=== PATIENT | male | born 2000 | race Caucasian/White ===

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

== ENCOUNTER 2021-12-27 15:43 | Emergency (ER) | payer BC, OTHER ==
--- NOTE | 2021-12-27 17:08 | CT ---
EXAMINATION TYPE: CT brain cspine wo con DATE OF EXAM: 12/27/2021 COMPARISON: Head CT scan 12/04/2020 HISTORY: shoulder pain CT DLP: 1298.5 mGycm Automated exposure control for dose reduction was used. Ventricles have normal size. There is no mass effect or midline shift. No sign of intracranial hemorr baltazar. The calvarium is intact. The cervical vertebra have normal spacing and alignment. Posterior elements are intact. Facet joints appear normal. Prevertebral soft tissues appear normal. Mastoid sinuses appear normal. Skull base is intact. IMPRESSION: Normal unenhanced head CT scan. Normal CT scan of the cervical spine.
--- NOTE | 2021-12-27 17:27 | ED ---
General Adult HPI - General Chief complaint: Recheck/Abnormal Lab/Rx Stated complaint: L shoulder/ribs injury/coughing up blood Time Seen by Provider: 12/27/21 16:34 Source: patient, RN notes reviewed, old records reviewed Mode of arrival: ambulatory Limitations: no limitations - History of Present Illness Initial comments: 21-year-old male presenting with left-sided chest injury, head injury, right knee injury. Patient states he was drinking and possibly doing drugs yesterday he is uncertain exactly what happened. He did report bilateral knee pain, occipital headache, and injury to the left chest wall. - Related Data Home Medications Medication Instructions Recorded Confirmed No Known Home Medications 09/15/15 12/04/20 Allergies Allergy/AdvReac Type Severity Reaction Status Date / Time No Known Allergies Allergy Verified 12/27/21 16:29 Review of Systems ROS Statement: Those systems with pertinent positive or pertinent negative responses have been documented in the HPI. ROS Other: All systems not noted in ROS Statement are negative. Past Medical History Past Medical History: Seizure Disorder History of Any Multi-Drug Resistant Organisms: None Reported Past Surgical History: No Surgical Hx Reported, Orthopedic Surgery Past Psychological History: Anxiety, Depression Smoking Status: Vaper Past Alcohol Use History: Occasional Past Drug Use History: None Reported - Past Family History Mother Family Medical History: No Reported History General Exam Limitations: no limitations General appearance: alert, in no apparent distress Head exam: Present: atraumatic, normocephalic Eye exam: Present: normal appearance, PERRL ENT exam: Present: normal exam Neck exam: Present: normal inspection. Absent: tenderness, meningismus Respiratory exam: Present: normal lung sounds bilaterally. Absent: respiratory distress, wheezes Cardiovascular Exam: Present: regular rate, normal rhythm GI/Abdominal exam: Present: soft. Absent: distended, tenderness Extremities exam: Present: tenderness (Bilateral abrasions to the anterior knees), normal capillary refill. Absent: pedal edema, calf tenderness Neurological exam: Present: alert, oriented X3, CN II-XII intact Skin exam: Present: warm, dry Course Vital Signs 12/27/21 12/27/21 16:26 18:22 Temperature 98.6 F 98.3 F Pulse Rate 100 107 H Respiratory 20 20 Rate Blood Pressure 147/106 157/91 O2 Sat by Pulse 99 100 Oximetry Medical Decision Making - Medical Decision Making 21-year-old male with alcohol use as well as various illicit drugs possibly cocaine, possible Adderall, possible methamphetamine. Injury occurred yesterday. CT brain is ordered which is negative for intracranial hemorrhage or mass effect, chest x-ray as well as bilateral knee x-rays are negative for traumatic injury. His breath alcohol is negative. Urine drug screen Disposition Clinical Impression: Concussion, Contusion of rib on left side Disposition: HOME SELF-CARE Condition: Fair Instructions (If sedation given, give patient instructions): Rib Contusion (ED), Concussion (ED) Is patient prescribed a controlled substance at d/c from ED?: No Referrals: None,Stated [Primary Care Provider] - 1-2 days Jean Londono MD [REFERRING] - 1-2 days Time of Disposition: 18:49
--- NOTE | 2021-12-27 17:44 | XR ---
EXAMINATION TYPE: XR knee complete bilateral DATE OF EXAM: 12/27/2021 COMPARISON: NONE HISTORY: Pain TECHNIQUE: 3 views each knee FINDINGS: There is no fracture nor dislocation. Joint spaces are normal. No sign of knee joint effusi on. IMPRESSION: Normal bilateral knee exam.
--- NOTE | 2021-12-27 17:46 | XR ---
EXAMINATION TYPE: XR chest 2V DATE OF EXAM: 12/27/2021 COMPARISON: 09/15/2015 HISTORY: Chest pain TECHNIQUE: FINDINGS: Heart is normal. Lungs are clear. Diaphragm is normal. Bony thorax appears normal. IMPRESSION: Normal chest. There is clearing of some infiltrate in the right upper lobe compared to ol d exam.
[2021-12-27 18:24] VITALS: TEMP 98.3
[2021-12-27 19:15] LABS: Amphetamine Screen,Urine Detected (NotDetected); Barbiturate Screen,Urine Not Detected (NotDetected); Benzodiazepines Screen,Urine Not Detected (NotDetected); Cocaine Screen,Urine Not Detected (NotDetected); Methadone Screen, Urine Not Detected (NotDetected); Opiate Screen,Urine Not Detected (NotDetected); Oxycodone Screen, Urine Not Detected (NotDetected); Phencyclidine Screen,Urine Not Detected (NotDetected); Tricyclic Antidepressant,Urine Not Detected (NotDetected); Urn Cannabinoid Scrn Detected (NotDetected)
[2021-12-27 19:34] VITALS: BP 128/76; PULSE 82; RESP 16
== END 2021-12-27 19:35 | disposition home or self-care (01) ==
LOC: EC 15:43
DX: S20.211A Contusion of right front wall of thorax, initial encounter (principal); S06.0X9A Concussion with loss of consciousness of unspecified duration, initial encounter; F17.209 Nicotine dependence, unspecified, with unspecified nicotine-induced disorders; X58.XXXA Exposure to other specified factors, initial encounter
CPT/HCPCS: 70450; 71046; 72125; 80306; 82075; 99284

== ENCOUNTER 2022-06-21 18:10 | Emergency (ER) | payer SELFPAY ==
[2022-06-21 18:26] VITALS: TEMP 98
--- NOTE | 2022-06-21 20:38 | ED ---
General Adult HPI - General Chief complaint: Upper Respiratory Infection Stated complaint: fever, body aches Time Seen by Provider: 06/21/22 19:21 Source: patient Mode of arrival: ambulatory Limitations: no limitations - History of Present Illness Initial comments: This is a 21-year-old male who presents emergency department for a COVID-19 test. The patient stated that he had upper respiratory infection including nasal congestion and a cough over the last several days that started on . The patient was at work and he was advised to get a COVID-19 test however he presented to an urgent care and they told him that he needed an upfront amount of money and he did not want to pay this so evaluated throughout the weekend to come to the emergency department today for a test. The patient denied any fevers or chills and stated that he just needed testicle back to work. The patient denied any other acute pain or complaints at this time. - Related Data Home Medications Medication Instructions Recorded Confirmed No Known Home Medications 09/15/15 12/04/20 Allergies Allergy/AdvReac Type Severity Reaction Status Date / Time No Known Allergies Allergy Verified 06/21/22 18:26 Review of Systems ROS Statement: Those systems with pertinent positive or pertinent negative responses have been documented in the HPI. ROS Other: All systems not noted in ROS Statement are negative. Past Medical History Past Medical History: Seizure Disorder History of Any Multi-Drug Resistant Organisms: None Reported Past Surgical History: Orthopedic Surgery Additional Past Surgical History / Comment(s): right arm Past Psychological History: Anxiety, Depression Smoking Status: Vaper Past Alcohol Use History: Rare Past Drug Use History: Marijuana - Past Family History Mother Family Medical History: No Reported History General Exam Limitations: no limitations General appearance: alert, in no apparent distress Head exam: Present: atraumatic, normocephalic Eye exam: Present: normal appearance, PERRL Pupils: Present: normal accommodation ENT exam: Present: normal exam, normal oropharynx, mucous membranes moist Neck exam: Present: normal inspection, full ROM Respiratory exam: Present: normal lung sounds bilaterally Cardiovascular Exam: Present: regular rate, normal rhythm, normal heart sounds GI/Abdominal exam: Present: soft, normal bowel sounds Extremities exam: Present: normal inspection, full ROM, normal capillary refill Back exam: Present: normal inspection, full ROM Neurological exam: Present: alert, oriented X3, CN II-XII intact Psychiatric exam: Present: normal affect, normal mood Skin exam: Present: warm, dry Course Vital Signs 06/21/22 06/21/22 18:21 20:48 Temperature 98.0 F Pulse Rate 84 72 Respiratory 20 18 Rate Blood Pressure 139/88 143/92 O2 Sat by Pulse 97 98 Oximetry Medical Decision Making - Medical Decision Making The patient was seen and evaluated emergency department. Physical exam, the patient was resting in bed without any acute distress. Vital signs admission were stable and within normal limits. Swab for COVID-19, influenza and RSV were obtained and were all negative. The patient was deemed stable for discharge. The patient was advised that he can return to work tomorrow. The patient was agreeable to this and all discretions were answered. The patient was discharged home in stable condition. - Lab Data Lab Results 06/21/22 Range/Units 19:39 Influenza Type A (PCR) Not Detected (Not Detectd) Influenza Type B (PCR) Not Detected (Not Detectd) RSV (PCR) Not Detected (Not Detectd) SARS-CoV-2 (PCR) Not Detected (Not Detectd) Disposition Clinical Impression: URI (upper respiratory infection) Disposition: HOME SELF-CARE Condition: Stable Instructions (If sedation given, give patient instructions): Upper Respiratory Infection (ED) Is patient prescribed a controlled substance at d/c from ED?: No Referrals: Jean Londono MD [Primary Care Provider] - 1-2 days Time of Disposition: 20:30
[2022-06-21 20:49] VITALS: BP 143/92; PULSE 72; RESP 18
== END 2022-06-21 20:49 | disposition home or self-care (01) ==
LOC: EC 18:10
DX: J06.9 Acute upper respiratory infection, unspecified (principal); F41.9 Anxiety disorder, unspecified; F32.A Depression, unspecified; F17.290 Nicotine dependence, other tobacco product, uncomplicated; F12.90 Cannabis use, unspecified, uncomplicated; Z20.822 Contact with and (suspected) exposure to COVID-19
CPT/HCPCS: 87636; 99283

== ENCOUNTER 2022-11-02 17:26 | Emergency (ER) | payer BC, OTHER ==
[2022-11-02 17:57] VITALS: BP 161/109; TEMP 98.8
--- NOTE | 2022-11-02 19:41 | ED ---
URI HPI - General Chief Complaint: Upper Respiratory Infection Stated Complaint: Abd pain Time Seen by Provider: 11/02/22 19:10 Source: patient Mode of arrival: ambulatory Limitations: no limitations - History of Present Illness Initial Comments: Patient is a 22-year-old male presenting with chief complaint of URI-like symptoms. Patient has been experiencing cough and congestion as well as some nausea and body aches for a few days. His platelets of work and stated that he had to be tested for Covid in order to return to work. No chest pain, diffic ulty breathing, fevers, vomiting, abdominal pain, diarrhea, palpitations, weakness, numbness, tingling - Related Data Previous Rx's Medication Instructions Recorded Amoxicillin 875 mg PO Q12HR 7 Days #14 tablet 08/22/22 Allergies Allergy/AdvReac Type Severity Reaction Status Date / Time No Known Allergies Allergy Verified 11/02/22 17:57 Review of Systems ROS Statement: Those systems with pertinent positive or pertinent negative responses have been documented in the HPI. ROS Other: All systems not noted in ROS Statement are negative. Past Medical History Past Medical History: Seizure Disorder History of Any Multi-Drug Resistant Organisms: None Reported Past Surgical History: Orthopedic Surgery Additional Past Surgical History / Comment(s): right arm Past Psychological History: Anxiety, Depression Smoking Status: Current every day smoker, Vaper Past Alcohol Use History: Rare Past Drug Use History: Marijuana - Past Family History Mother Family Medical History: No Reported History General Exam Limitations: no limitations General appearance: alert, in no apparent distress Head exam: Present: atraumatic, normocephalic, normal inspection Eye exam: Present: normal appearance, EOMI. Absent: scleral icterus, periorbital swelling Neck exam: Present: normal inspection, full ROM Respiratory exam: Present: normal lung sounds bilaterally. Absent: respiratory distress, wheezes, rales, rhonchi, stridor Cardiovascular Exam: Present: regular rate, normal rhythm, normal heart sounds. Absent: systolic murmur, diastolic murmur, rubs, gallop, clicks Neurological exam: Present: alert, oriented X3, CN II-XII intact Psychiatric exam: Present: normal affect, normal mood Skin exam: Present: warm, dry, intact, normal color. Absent: rash Course Vital Signs 11/02/22 11/02/22 17:55 19:45 Temperature 98.8 F Pulse Rate 88 82 Respiratory 20 16 Rate Blood Pressure 161/109 O2 Sat by Pulse 99 98 Oximetry Medical Decision Making - Medical Decision Making Was pt. sent in by a medical professional or institution (BRITTON Moreno, FOOTWEAR MACHINERY INSTRUCTOR, urgent care, hospital, or shelter...) When possible be specific @ -No Did you speak to anyone other than the patient for history (EMS, parent, family, police, friend...)? What history was obtained from this source @ -No Did you review nursing and triage notes (agree or disagree)? Why? @ -I reviewed and agree with nursing and triage notes Were old charts reviewed (outside hosp., previous admission, EMS record, old EKG, old radiological studies, urgent care reports/EKG's, shelter records)? Report findings @ -No old charts were reviewed Differential Diagnosis (chest pain, altered mental status, abdominal pain women, abdominal pain men, vaginal bleeding, weakness, fever, dyspnea, syncope, headache, dizziness, GI bleed, back pain, seizure, CVA, palpatations, mental health, musculoskeletal)? @ -Differential includes Covid, influenza, RSV, other viral URI, gastroenteritis EKG interpreted by me (3pts min.). @ -As above X-rays interpreted by me (1pt min.). @ -None done CT interpreted by me (1pt min.). @ -None done U/S interpreted by me (1pt. min.). @ -None done What testing was considered but not performed or refused? (CT, X-rays, U/S, labs)? Why? @ -None What meds were considered but not given or refused? Why? @ -None Did you discuss the management of the patient with other professionals (professionals i.e. BRITTON Moreno, FOOTWEAR MACHINERY INSTRUCTOR, lab, RT, psych nurse, social science manager, cook camp, teacher, co founder and chief strategy officer, marketing operations manager)? Give summary @ -No Was smoking cessation discussed for >3mins.? @ -No Was critical care preformed (if so, how long)? @ -No Were there social determinants of health that impacted care today? How? (Homelessness, low income, unemployed, alcoholism, drug addiction, transportation, low edu. Level, literacy, decrease access to med. care, detention, rehab)? @ -No Was there de-escalation of care discussed even if they declined (Discuss DNR or withdrawal of care, Hospice)? DNR status @ -No What co-morbidities impacted this encounter? (DM, HTN, Smoking, COPD, CAD, Cancer, CVA, ARF, Chemo, Hep., AIDS, mental health diagnosis, sleep apnea, morbid obesity)? @ -None Was patient admitted / discharged? Hospital course, mention meds given and route, prescriptions, significant lab abnormalities, going to OR and other pertinent info. @ -Discharge. Patient is a 22-year-old male presenting with chief complaint of URI-like symptoms and nausea ongoing for the past few days, requesting be tested for Covid. Patient is negative for Covid, influenza, RSV. He is provided with a work note as requested. Educated on supportive management at home.Follow-up with PCP. Report back to ER with any new or worsening symptoms. Discussed return parameters and answered all questions. Patient conveyed verbal understanding and agreed to the plan. I discussed this case in detail with my attending Dr. Charles Undiagnosed new problem with uncertain prognosis? @ [N] Drug Therapy requiring intensive monitoring for toxicity (Heparin, Nitro, Insulin, Cardizem)? @ [N] Were any procedures done? @ [N] Diagnosis/symptom? @ URI] Acute, or Chronic, or Acute on Chronic? @ Acute] Uncomplicated (without systemic symptoms) or Complicated (systemic symptoms)? @ Uncomplicated] Side effects of treatment? @ [N] Exacerbation, Progression, or Severe Exacerbation? @ [N] Poses a threat to life or bodily function? How? (Chest pain, [place], [place], pneumonia, PE, COPD, DKA, ARF, appy, cholecystitis, CVA, Diverticulitis, Homicidal, Suicidal, threat to staff... and all critical care pts) @ [N] - Lab Data Lab Results 11/02/22 Range/Units 18:00 Influenza Type A (PCR) Not Detected (Not Detectd) Influenza Type B (PCR) Not Detected (Not Detectd) RSV (PCR) Not Detected (Not Detectd) SARS-CoV-2 (PCR) Not Detected (Not Detectd) Disposition Clinical Impression: Acute upper respiratory infection Disposition: HOME SELF-CARE Condition: Good Instructions (If sedation given, give patient instructions): Upper Respiratory Infection (ED) Additional Instructions: Follow-up with PCP. Report back to ER with any new or worsening symptoms. Is patient prescribed a controlled substance at d/c from ED?: No Referrals: Jean Londono MD [Primary Care Provider] - 1-2 days Time of Disposition: 19:41
[2022-11-02 19:46] VITALS: PULSE 82; RESP 16
== END 2022-11-02 19:45 | disposition home or self-care (01) ==
LOC: EC 17:26
DX: J06.9 Acute upper respiratory infection, unspecified (principal); F17.290 Nicotine dependence, other tobacco product, uncomplicated; F12.90 Cannabis use, unspecified, uncomplicated; Z20.822 Contact with and (suspected) exposure to COVID-19
CPT/HCPCS: 87636; 99284